=== PATIENT | female | born 1940 | race Caucasian/White ===

== ENCOUNTER → 2020-04-30 | Outpatient (CLI) | payer MEDICARE ==
[2020-04-30 12:23] LABS: ABSOLUTE EOSINOPHILS # (AUTO) 0.1 10^3/uL (0.0-0.6); ABSOLUTE LYMPHOCYTES (AUTO) 1.5 10^3/uL (0.5-4.7); ABSOLUTE MONOCYTES (AUTO) 0.6 10^3/uL (0.1-1.4); ABSOLUTE NEUT (AUTO) 3.7 10^3/uL (1.7-8.2); BASOPHILS % (AUTO) 0.6 % (0-2); EOSINOPHILS % (AUTO) 0.9 % (0-6); HEMATOCRIT 42.9 % (36.0-47.0); HEMOGLOBIN 14.2 g/dL (12.0-15.5); MEAN CORPUSCULAR HEMOGLOBIN 30.4 pg (27.0-33.4); MEAN CORPUSCULAR HGB CONC 33.1 g/dL (32.0-36.0); MEAN CORPUSCULAR VOLUME 92 fl (80-97); MONOCYTES % (AUTO) 9.8 % (3-13); PLATELET COUNT 160 10^3/uL (150-450); RED BLOOD COUNT 4.69 10^6/uL (3.72-5.28); RED CELL DISTRIBUTION WIDTH 14.1 % (11.5-14.0); SEGMENTED NEUTROPHILS % (AUTO) 62.7 % (42-78); TOTAL CELLS COUNTED % (AUTO) 100 %; WHITE BLOOD COUNT 5.9 10^3/uL (4.0-10.5)
--- NOTE | 2020-04-30 12:23 | RADIOLOGY REPORT (SQ) ---
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 NUMBER OF VIEWS: Two views. TECHNIQUE: Two radiographic images acquired of the right tibia and fibula to include the knee and an kle in at least one projection. LIMITATIONS: None. FINDINGS: MINERALIZATION: Normal. BONES: Surgical clips are closely approximated to the anterior tibia. There is no evidence of osteom yelitis. There is some subperiosteal new bone along the tibia that is smooth and benign in appearanc e. SOFT TISSUES: No obvious swelling or foreign body. OTHER: No other significant finding. IMPRESSION: No evidence of osteomyelitis. TECHNICAL DOCUMENTATION: JOB ID: [id number] 2010 [employer]- All Rights Reserved Reading location - IP/workstation name: [email or web address]
[2020-04-30 12:27] LABS: ALBUMIN 4.2 g/dL (3.5-5.0); ALKALINE PHOSPHATASE 69 U/L (38-126); ASPARTATE AMINO TRANSFERASE 25 U/L (14-36); BILIRUBIN,DIRECT 0.1 mg/dL (0.0-0.4); BILIRUBIN,TOTAL 0.6 mg/dL (0.2-1.3); BLOOD UREA NITROGEN 18 mg/dL (7-20); C-REACTIVE PROTEIN 6.2 mg/L (<10.0); CALCIUM 9.8 mg/dL (8.4-10.2); CARBON DIOXIDE 32 mmol/L (22-30); GLUCOSE 91 mg/dL (75-110); POTASSIUM 4.8 mmol/L (3.6-5.0); TOTAL PROTEIN 7.5 g/dL (6.3-8.2)
[2020-04-30 12:30] LABS: CHLORIDE 103 mmol/L (98-107)
[2020-04-30 12:32] LABS: ANION GAP 4 (5-19)
[2020-04-30 12:41] LABS: ERYTHROCYTE SEDIMENTATION RATE 33 mm/hr (0-30)
== END ==
LOC: WC 10:28
PROVIDERS: ATTEND Nurse Practitioner Family
DX: L97.214 Non-pressure chronic ulcer of right calf with necrosis of bone (principal)
CPT/HCPCS: 36415; 80053; 85025; 85652; 86140

== ENCOUNTER → 2020-05-08 | Outpatient (CLI) | payer MEDICARE ==
--- NOTE | 2020-05-08 17:27 | RADIOLOGY REPORT (SQ) ---
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 TECHNIQUE: Dynamic and static yoder scale and color images acquired of the lower extremity arteries. Additional selected spectral images recorded. LIMITATIONS: None. FINDINGS: RIGHT LEG: INFLOW ARTERIES: Normal, no obstruction evident. FEMORAL ARTERIES:Multiphasic waveforms. Normal, no velocity elevation to suggest focal stenosis. Norm al color Doppler evaluation. No aneurysm. POPLITEAL ARTERY:Multiphasic waveforms. Normal, no velocity elevation to suggest focal stenosis. Norm al color Doppler evaluation. No aneurysm. PATENT TIBIOPERONEAL TRUNK AND 3 VESSEL RUNOFF: Yes, normal vessels. OTHER: No other significant finding. LEFT LEG: INFLOW ARTERIES: Normal, no obstruction evident. FEMORAL ARTERIES:Multiphasic waveforms. Normal, no velocity elevation to suggest focal stenosis. Norm al color Doppler evaluation. No aneurysm. POPLITEAL ARTERY:Multiphasic waveforms. Normal, no velocity elevation to suggest focal stenosis. Norm al color Doppler evaluation. No aneurysm. PATENT TIBIOPERONEAL TRUNK AND 3 VESSEL RUNOFF: Yes, normal vessels. OTHER: No other significant finding. IMPRESSION: No significant or flow limiting stenosis. Normal waveforms. TECHNICAL DOCUMENTATION: JOB ID: [id number] 2010 [employer]- All Rights Reserved Reading location - IP/workstation name: [email or web address]
== END ==
LOC: SP 08:50
PROVIDERS: ATTEND Nurse Practitioner Family
DX: L97.214 Non-pressure chronic ulcer of right calf with necrosis of bone (principal)
CPT/HCPCS: 93925

== ENCOUNTER → 2020-06-11 | Outpatient (CLI) | payer MEDICARE ==
--- NOTE | 2020-06-11 12:13 | RADIOLOGY REPORT (SQ) ---
EXAM DESCRIPTION: C SP 4 OR 5 VIEWS IMAGES COMPLETED DATE/TIME: 06/11/2020 9:53 am REASON FOR STUDY: RADICULOPATHY, CERVICAL REGION M54.12 RADICULOPATHY, CERVICAL REGION COMPARISON: None. NUMBER OF VIEWS: Five views. TECHNIQUE: AP, lateral, obliques and odontoid radiographic images acquired of the cervical spine. LIMITATIONS: None. FINDINGS: MINERALIZATION: Normal. ALIGNMENT: Anatomic. VERTEBRAE: Vertebral bodies of normal height. DISCS: Disc spaces are narrowed from C5-C7. Marginal osteophytes are seen from C4-T1. FORAMINA: No significant foraminal narrowing. LATERAL AND POSTERIOR ELEMENTS: Hypertrophic facet changes seen in the mid to upper cervical spine. HARDWARE: None in the spine. SOFT TISSUES: No masses or calcifications. Lung apices clear. OTHER: No other significant finding. IMPRESSION: Degenerative disc disease, spondylosis, and facet arthropathy. TECHNICAL DOCUMENTATION: JOB ID: [id number] 2010 [employer]- All Rights Reserved Reading location - IP/workstation name: [email or web address]
== END ==
LOC: OD 09:27
PROVIDERS: ATTEND Family Medicine Geriatric Medicine
DX: M54.12 Radiculopathy, cervical region (principal)
CPT/HCPCS: 72050

== ENCOUNTER → 2020-06-11 | Outpatient (CLI) | payer MEDICARE ==
--- NOTE | 2020-06-11 14:32 | RADIOLOGY REPORT (SQ) ---
EXAM DESCRIPTION: CT HEAD WITH IMAGES COMPLETED DATE/TIME: 06/11/2020 1:54 pm REASON FOR STUDY: R51 HEADACHE Z85.528 PERSONAL HISTORY OF OTHER MALIGNANT NEOPLASM OF KIDN R51 HE ADACHE L97.919 NON-PRS CHRONIC ULC UNSP PRT OF R LOW LEG W UNSP SEV COMPARISON: None. TECHNIQUE: Axial images acquired through the brain with intravenous contrast. Images reviewed with b one, brain and subdural windows. Additional sagittal and coronal reconstructions were generated. Rosa Isela ges stored on PACS. All CT scanners at this facility use dose modulation, iterative reconstruction, and/or weight based d osing when appropriate to reduce radiation dose to as low as reasonably achievable (ALARA). [facility]: Dose Right [facility]: CareDose [facility]: Dose Right [facility]: Teradose 4D [facility]: [employer] CONTRAST TYPE AND DOSE: Not recorded here. Refer to the technologist's notes. RENAL FUNCTION: Creatinine 0.9 RADIATION DOSE: CT Rad equipment meets quality standard of care and radiation dose reduction techniq ues were employed. CTDIvol: 48.6 mGy. DLP: 880 mGy-cm.. LIMITATIONS: There is no opacification of cerebral blood vessels. FINDINGS: VENTRICLES: Normal size and contour. CEREBRUM: No masses. No hemorrhage. No midline shift. There are areas of decreased attenuation in th e white matter. No evidence for acute infarction. No enhancing lesions. CEREBELLUM: No masses. No hemorrhage. No alteration of density. No evidence for acute infarction. No enhancing lesions. EXTRA-AXIAL SPACES: No fluid collections. No enhancing lesions. ORBITS AND GLOBE: No intra- or extraconal masses. Normal contour of globe without masses. CALVARIUM: No fracture. PARANASAL SINUSES: No fluid or mucosal thickening. SOFT TISSUES: No mass or hematoma. OTHER: No other significant finding. IMPRESSION: Chronic microvascular ischemia. No acute intracranial imaging findings. Limited study. EVIDENCE OF ACUTE STROKE: NO. TECHNICAL DOCUMENTATION: JOB ID: [id number] Quality ID # [id number]: Final reports with documentation of one or more dose reduction techniques (e.g., Au tomated exposure control, adjustment of the mA and/or kV according to patient size, use of iterative reconstruction technique) 2010 [employer]- All Rights Reserved Reading location - IP/workstation name: [email or web address]
--- NOTE | 2020-06-11 14:40 | RADIOLOGY REPORT (SQ) ---
EXAM DESCRIPTION: CT CHEST WITH IMAGES COMPLETED DATE/TIME: 06/11/2020 1:54 pm REASON FOR STUDY: Z85.528 PERSONAL HISTORY OF OTHER MALIGNANT NEOPLASM OF KIDNEY Z85.528 PERSONAL H ISTORY OF OTHER MALIGNANT NEOPLASM OF KIDN R51 HEADACHE L97.919 NON-PRS CHRONIC ULC UNSP PRT OF R L OW LEG W UNSP SEV COMPARISON: None. TECHNIQUE: CT scan of the chest performed using helical scanning technique with dynamic intravenous contrast injection. Images reviewed with lung, soft tissue and bone windows. Reconstructed coronal and sagittal MPR and MIP images reviewed. All images stored on PACS. All CT scanners at this facility use dose modulation, iterative reconstruction, and/or weight based d osing when appropriate to reduce radiation dose to as low as reasonably achievable (ALARA). [facility]: Dose Right [facility]: CareDose [facility]: Dose Right [facility]: Teradose 4D [facility]: [employer] CONTRAST TYPE AND DOSE: contrast/concentration: Isovue 350.00 mmol/ml; Total Contrast Delivered: 80. 0 ml; Total Saline Delivered: 39.9 ml RENAL FUNCTION: Creatinine 0.9 RADIATION DOSE: CT Rad equipment meets quality standard of care and radiation dose reduction techniq ues were employed. CTDIvol: 9.7 mGy. DLP: 420 mGy-cm. . LIMITATIONS: None. FINDINGS: LUNGS AND PLEURA: No opacities, nodules, masses. No pneumothorax. No effusions. HILAR AND MEDIASTINAL STRUCTURES: No identified masses or abnormal nodes. HEART AND VASCULAR STRUCTURES: No aneurysm or dissection. No central pulmonary emboli. 9 mm pericar dial effusion. HARDWARE: None in the chest. UPPER ABDOMEN: Large gallstone. THYROID AND OTHER SOFT TISSUES: No masses. No adenopathy. BONES: No significant finding. OTHER: 4 cm mass or group of matted lymph nodes in the right lateral chest wall. See image 45 series 2. There appear to be a couple of contiguous lymph nodes in the subcutaneous fat in the anterior ab domen. See images 69 through 72. IMPRESSION: 1. No acute pulmonary findings. 2. Small pericardial effusion. 3. 4 cm mass or group of lymph nodes in the right lateral chest wall. 22 mm total diameter of 2 con tiguous lymph nodes in the subcutaneous fat in the anterior abdomen. 4. Cholelithiasis. TECHNICAL DOCUMENTATION: JOB ID: [id number] Quality ID # 436: Final reports with documentation of one or more dose reduction techniques (e.g., Au tomated exposure control, adjustment of the mA and/or kV according to patient size, use of iterative reconstruction technique) 2010 [employer]- All Rights Reserved Reading location - IP/workstation name: [email or web address]
--- NOTE | 2020-06-11 15:23 | RADIOLOGY REPORT (SQ) ---
EXAM DESCRIPTION: U/S EXTREMITY NONVASCULAR COMP IMAGES COMPLETED DATE/TIME: 06/11/2020 2:53 pm REASON FOR STUDY: . NON-PRS CHRONIC ULC UNSP PRT OF R LOW LEG W UNSP SEVERITY Z85.528 PERSONA L HISTORY OF OTHER MALIGNANT NEOPLASM OF KIDN R51 HEADACHE L97 NON-PRS CHRONIC ULC UNSP PRT OF R LOW LEG W UNSP SEV COMPARISON: None. TECHNIQUE: Dynamic and static grayscale images acquired of the localized site of clinical concern an d recorded on PACS. Additional selected color Doppler and spectral images recorded. SITE OF CONCERN: Bilateral supraclavicular areas, lower neck. Right arm LIMITATIONS: None. FINDINGS: No significant findings were seen in the right arm. In the right lower neck/ supraclavicular area there is an irregular heterogeneous hypoechoic area rosie suring 17 x 21 x 10 mm. In the left neck/ supraclavicular area there is irregular heterogeneous hypoechoic mass measuring 34 x 28 x 33 mm. There is an irregular hypoechoic heterogeneous mass measuring 12 x 13 x 10 mm. There is a hypoechoic area measuring 26 x 22 x 19 mm. IMPRESSION: There are irregular hypoechoic areas in the neck/supraclavicular region bilaterally as d escribed. Cannot exclude necrotic lymph nodes. Consider CT of the neck with contrast. Consider ult rasound-guided biopsy. TECHNICAL DOCUMENTATION: JOB ID: [id number] 2010 [employer]- All Rights Reserved Reading location - IP/workstation name: [email or web address]
== END ==
LOC: RAD 13:07
PROVIDERS: ATTEND Family Medicine Geriatric Medicine
DX: R51 Headache (principal); L97.919 Non-pressure chronic ulcer of unspecified part of right lower leg with unspecified severity; Z85.528 Personal history of other malignant neoplasm of kidney
CPT/HCPCS: 70460; 71260; 76881; 82565

== ENCOUNTER → 2020-06-24 | Outpatient (CLI) | payer MEDICARE ==
--- NOTE | 2020-06-25 09:06 | RADIOLOGY REPORT (SQ) ---
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 TECHNIQUE: Blood glucose level was verified. Above dose of FDG was injected intravenously. 2-D seg mented attenuation correction images were obtained through the entire body. Noncontrast CT images we re obtained for attenuation correction and fusion with emission images. CT images were performed wit hout oral or intravenous contrast and are not sensitive for parenchymal lesions. A series of overlap ping emission PET images were obtained. Images reviewed and manipulated at independent work station by the radiologist. Images stored on PACS. LIMITATIONS: None. FINDINGS: HEAD AND NECK: Abnormal uptake in the large soft tissue mass in the left posterior neck th is measures 3.7 cm in diameter. SUV is greater than 31 consistent with neoplasm. Extensive bilatera l cervical adenopathy again with intense metabolic activity SUVs are greater than 28 consistent with neoplasm. CHEST: Subcutaneous nodules in the back, right axilla and right upper extremity consistent with metas tatic disease. There is a focal soft tissue nodule in the right breast with an SUV of 30. This aris ures 1.[address] images. There is a large right posterolateral chest wall mass with an SUV of 25.2 . ABDOMEN AND PELVIS: Subcutaneous lesions in the anterior abdominal wall. There is a peritoneal impla nt on series 3, image 187. SUV is 23.8. There is a 3.6 cm right retroperitoneal mass with an SUV of 32.8. There is a large soft tissue mass over lying the right iliac wing with an SUV of greater than 25. Additional peritoneal implants in the right anterior aspect of the pelvis with SUVs greater bob n 19. Additional muscular implants are seen in the left posterior upper extremity minimal uptake in a subcutaneous nodule in the subcutaneous soft tissues of the mons pubis. LOWER EXTREMITIES: Numerous subcutaneous nodules in the right lower leg with intense metabolic activi ty. BONES: No abnormal metabolic activity in the visualized skeleton. ADDITIONAL CT FINDINGS: Incidental note is made of gallstones. OTHER: No other significant findings. 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 There are subcutaneous nodules as well as numerous peritoneal implants. TECHNICAL DOCUMENTATION: JOB ID: [id number] 2010 [employer]- All Rights Reserved Reading location - IP/workstation name: [email or web address]
== END ==
LOC: RAD 12:38
PROVIDERS: ATTEND Internal Medicine
DX: C43.71 Malignant melanoma of right lower limb, including hip (principal)
CPT/HCPCS: 78816; A9552

== ENCOUNTER 2020-06-26 09:03 | Day surgery (SDC) | payer MEDICARE ==
[2020-06-26 10:24] LABS: HEMATOCRIT 28.2 % (36.0-47.0); HEMOGLOBIN 9.8 g/dL (12.0-15.5); MEAN CORPUSCULAR HEMOGLOBIN 32.8 pg (27.0-33.4); MEAN CORPUSCULAR HGB CONC 34.7 g/dL (32.0-36.0); MEAN CORPUSCULAR VOLUME 95 fl (80-97); PLATELET COUNT 203 10^3/uL (150-450); RED BLOOD COUNT 2.99 10^6/uL (3.72-5.28); RED CELL DISTRIBUTION WIDTH 16.4 % (11.5-14.0); WHITE BLOOD COUNT 5.6 10^3/uL (4.0-10.5)
[2020-06-26 10:31] LABS: INTERNATIONAL RATION (INR) 1.07; PROTHROMBIN TIME 14.1 SEC (11.4-15.4)
[2020-06-26 10:32] LABS: PARTIAL THROMBOPLASTIN TIME 32.7 SEC (23.5-35.8)
[2020-06-26 10:49] LABS: BLOOD UREA NITROGEN 21 mg/dL (7-20)
[2020-06-26] MEDS ORDERED: FENTANYL CITRATE INJ/PF 100 MCG/2 ML AMPUL ONE (11:03)
[2020-06-26] MEDS ORDERED: MIDAZOLAM 2 MG/2 ML INJ ONE (11:03)
--- NOTE | 2020-06-26 13:34 | RADIOLOGY REPORT (SQ) ---
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 TECHNIQUE: CT guided biopsy of the posterior right flank mass performed with conscious sedation. CT Fluoroscopy Time: [address] scanners at this facility use dose modulation, iterative reconstruction, and/or weight based d osing when appropriate to reduce radiation dose to as low as reasonably achievable (ALARA). [facility]: Dose Right [facility]: CareDose [facility]: Dose Right [facility]: Teradose 4D [facility]: [employer] RADIATION DOSE: CT Rad equipment meets quality standard of care and radiation dose reduction techni ques were employed. CTDIvol: 4.0 - 20.3 mGy. DLP: 492 mGy-cm.mGy. FINDINGS: After obtaining informed consent and explaining the risks and benefits of conscious sedati on,the patient agreed to the procedure. Prior to the procedure, a time out was performed to verify th e patient's identity and planned procedure. IV sedation was administered and physician direction by the registered nurse using 1 milligrams of Ve rsed and 100 micrograms of fentanyl, for conscious sedation. Physiologic monitoring was provided befo re, during, and after sedation. The total sedation time was 30 minutes. Documentation face to face time, the performing proceduralist, spent monitoring the patient: [address] scanning was performed to localize the percutaneous site for the biopsy approach. After sterile skin prep and local lidocaine for skin and deep tissue anesthesia, a coaxial biopsy nee dle was used to obtain multiple cores of tissue. The biopsy tissue was submitted to the lab in forma sirena. There were no immediate complications. Pathology is pending at the time of dictation. IMPRESSION: CT GUIDED BIOPSY OF THE POSTERIOR RIGHT FLANK MASS PERFORMED WITHOUT IMMEDIATE COMPLICAT ION. PATHOLOGY PENDING. COMMENT: Quality ID 145: Final reports for procedures using fluoroscopy that document radiation exp osure indices, or exposure time and number of fluorographic images (if radiation exposure indices are not available) Patient medication list reviewed: Yes- Quality ID# [id number]:Eligible professional attests to documenting i n the medical record they obtained, updated, or reviewed the patient's current medications.. TECHNICAL DOCUMENTATION: JOB ID: [id number] Quality ID# 436: Final reports with documentation of one or more dose reduction techniques (e.g., Aut omated exposure control, adjustment of the mA and/or kV according to patient size, use of iterative r econstruction technique) 2010 [employer]- All Rights Reserved Reading location - IP/workstation name: [email or web address]
--- NOTE | 2020-06-26 13:34 | RADIOLOGY REPORT (SQ) ---
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 TECHNIQUE: CT guided biopsy of the posterior right flank mass performed with conscious sedation. CT Fluoroscopy Time: [address] scanners at this facility use dose modulation, iterative reconstruction, and/or weight based d osing when appropriate to reduce radiation dose to as low as reasonably achievable (ALARA). [facility]: Dose Right [facility]: CareDose [facility]: Dose Right [facility]: Teradose 4D [facility]: [employer] RADIATION DOSE: CT Rad equipment meets quality standard of care and radiation dose reduction techni ques were employed. CTDIvol: 4.0 - 20.3 mGy. DLP: 492 mGy-cm.mGy. FINDINGS: After obtaining informed consent and explaining the risks and benefits of conscious sedati on,the patient agreed to the procedure. Prior to the procedure, a time out was performed to verify th e patient's identity and planned procedure. IV sedation was administered and physician direction by the registered nurse using 1 milligrams of Ve rsed and 100 micrograms of fentanyl, for conscious sedation. Physiologic monitoring was provided befo re, during, and after sedation. The total sedation time was 30 minutes. Documentation face to face time, the performing proceduralist, spent monitoring the patient: [address] scanning was performed to localize the percutaneous site for the biopsy approach. After sterile skin prep and local lidocaine for skin and deep tissue anesthesia, a coaxial biopsy nee dle was used to obtain multiple cores of tissue. The biopsy tissue was submitted to the lab in forma sirena. There were no immediate complications. Pathology is pending at the time of dictation. IMPRESSION: CT GUIDED BIOPSY OF THE POSTERIOR RIGHT FLANK MASS PERFORMED WITHOUT IMMEDIATE COMPLICAT ION. PATHOLOGY PENDING. COMMENT: Quality ID 145: Final reports for procedures using fluoroscopy that document radiation exp osure indices, or exposure time and number of fluorographic images (if radiation exposure indices are not available) Patient medication list reviewed: Yes- Quality ID# [id number]:Eligible professional attests to documenting i n the medical record they obtained, updated, or reviewed the patient's current medications.. TECHNICAL DOCUMENTATION: JOB ID: [id number] Quality ID# 436: Final reports with documentation of one or more dose reduction techniques (e.g., Aut omated exposure control, adjustment of the mA and/or kV according to patient size, use of iterative r econstruction technique) 2010 [employer]- All Rights Reserved Reading location - IP/workstation name: [email or web address]
[2020-06-26 13:48] VITALS: BP 134/61
== END 2020-06-26 13:37 | disposition home or self-care (01) ==
LOC: RAD 09:03
PROVIDERS: ATTEND Internal Medicine
DX: C43.71 Malignant melanoma of right lower limb, including hip (principal); C79.89 Secondary malignant neoplasm of other specified sites; Z79.01 Long term (current) use of anticoagulants
CPT/HCPCS: 36415; 84520; 82565; 85027; 85610; 85730; 88342 ×2; 88341 ×2; 88305 ×2; 77012; 38505; J2250; J3010

== ENCOUNTER → 2020-07-28 | Outpatient (CLI) | payer MEDICARE ==
[~2020-07-28] MED LIST: BUPIVACAINE HCL 0.25 % INJ/PF (2.5 MG/1 ML) 30 ML VIAL ONE; CEFAZOLIN 2 GM/D5W RTU 2 GM/50 ML RTUPB IV PRN; FENTANYL CITRATE INJ/PF 100 MCG/2 ML AMPUL ONE; LACTATED RINGERS 1000 ML IV PRN; LIDOCAINE 0.5% INJ-PF (5 MG/ML) 50 ML SDV SUBCUT PRN; LIDOCAINE 1% INJ-PF (10 MG/ML) 30 ML SDV ONE; LIDOCAINE 2% INJ (20 MG/ML) 20 ML MDV ONE; MIDAZOLAM 2 MG/2 ML INJ ONE; PROPOFOL INJ 200 MG/20 ML VIAL IV ONE
[2020-07-28 12:41] LABS: HEMATOCRIT 28.7 % (36.0-47.0); HEMOGLOBIN 9.7 g/dL (12.0-15.5); MEAN CORPUSCULAR HGB CONC 33.7 g/dL (32.0-36.0); MEAN CORPUSCULAR VOLUME 89 fl (80-97); PLATELET COUNT 258 10^3/uL (150-450); RED BLOOD COUNT 3.22 10^6/uL (3.72-5.28); RED CELL DISTRIBUTION WIDTH 16.4 % (11.5-14.0)
--- NOTE | 2020-07-28 13:04 | EKG REPORT ---
SEVERITY:- ABNORMAL ECG - ATRIAL FIBRILLATION : Confirmed by: Orestes Riley MD 28-Jul-2020 13:03:24
[2020-07-29 09:09] VITALS: BP 123/61
== END ==
LOC: OD 10:35 → EDSTATUS 07-30 09:00
PROVIDERS: ATTEND Surgery
DX: Z01.810 Encounter for preprocedural cardiovascular examination (principal); Z01.812 Encounter for preprocedural laboratory examination; Z20.828 Contact with and (suspected) exposure to other viral communicable diseases
CPT/HCPCS: 93005; 93010; U0003; C9803; 87635; J1642; J2250; J2704; J3010; J3490

== ENCOUNTER 2020-07-29 11:31 | Observation (INO) | payer MEDICARE ==
--- NOTE | 2020-07-29 14:31 | ER Document Report ---
ED General - General Chief Complaint: General Weakness Stated Complaint: ALTERED MENTAL STATUS Primary Care Provider: GEOVANI DAY MD [Primary Care Provider] - Follow up as needed Notes: Patient is an 80-year-old white female with a history of malignant melanoma with metastasis and atrial fibrillation who presents to the emergency department today with a chief complaint of generalized weakness. The daughter reports that the patient was diagnosed first 8 years ago with melanoma the right lower leg underwent radiation has had a chronic wound since. States that the melanoma return was found in May and has since been noted to spread throughout the body from "head to toes". Daughter reports a PET scan recently. She states that the patient's had some changes in her pain medicines recently. She was previously on Vicodin which did not work and then they reports she changed oxycodone which was helping but states that the patient is very forgetful to take the tablets and was accidentally taking Eliquis which she was supposed to have stopped instead of the oxycodone. The patient's daughter reports that she has not taken the Eliquis in quite some time. She reports that they recently changed her pain medication to fentanyl so she did not have to remember to take a pill every day. Daughter reports that she is on her second fentanyl patch so she has been on it approximately 6 days max. She states over the past 72 hours the patient's been very weak and fatigued. She states the patient's not had an appetite not wanting to get out of bed and has actually soiled herself because she did not have the strength to get from her bed to the bathroom but not that she was incontinent. States the patient's been complaining of a headache and has had increased flatulence. She states the patient was due to have a port placement tomorrow here, they called Dr. Tho doll today who recommended the patient come to the emergency department for admission. - Related Data Allergies/Adverse Reactions: No Known Allergies Allergy (Verified 07/29/20 12:22) Home Medications: losartan. eliquis (stopped R/T GI bleed) Past Medical History - General Information source: Patient, Relative - Social History Smoking Status: Former Smoker Family History: Reviewed & Not Pertinent Patient has homicidal ideation: No - Past Medical History Cardiac Medical History: Reports: Hx Hypertension Denies: Hx Coronary Artery Disease, Hx Heart Attack Pulmonary Medical History: Denies: Hx Asthma, Hx Bronchitis, Hx COPD, Hx Pneumonia Neurological Medical History: Denies: Hx Cerebrovascular Accident, Hx Seizures Musculoskeletal Medical History: Reports Hx Arthritis - Immunizations Hx Diphtheria, Pertussis, Tetanus Vaccination: No Review of Systems - Review of Systems Constitutional: denies: Fever EENT: denies: Nose pain Cardiovascular: denies: Dyspnea Respiratory: denies: Stridor Gastrointestinal: denies: Vomiting Genitourinary: denies: Hematuria Female Genitourinary: denies: Vaginal discharge Musculoskeletal: denies: Muscle stiffness Skin: denies: Change in hair/nails Hematologic/Lymphatic: denies: Easy bleeding Neurological/Psychological: denies: Gait changes Physical Exam - Vital signs Vitals: Pulse Resp BP Pulse Ox 70 18 128/76 H 97 07/29/20 11:31 07/29/20 11:31 07/29/20 11:31 07/29/20 11:31 - General General appearance: Appears well, Alert In distress: None - HEENT Head: Normocephalic, Atraumatic Eyes: Normal Conjunctiva: Normal Pupils: PERRL Mucous membranes: Moist Pharynx: Normal Neck: Normal, Supple - Respiratory Respiratory status: No respiratory distress Chest status: Nontender Breath sounds: Normal Chest palpation: Normal - Cardiovascular Rhythm: Regular Heart sounds: Normal auscultation Murmur: No - Abdominal Inspection: Normal Distension: No distension Bowel sounds: Normal Tenderness: Nontender Organomegaly: No organomegaly - Extremities Notes: Wound casting covering the right lower extremity, foul smell noted - Neurological Neuro grossly intact: Yes Cognition: Normal Orientation: AAOx4 - Psychological Associated symptoms: Normal affect, Normal mood - Skin Skin Temperature: Warm Skin Moisture: Dry Course - Re-evaluation Re-evalutation: 07/29/20 16:[address] Tho doll and discussed laboratory findings and patient's condition. We did discuss the possibility of the fentanyl being a new medication possibly causing this newfound generalized fatigue and weakness. Also discussed possibility of early dementia. He requested MRI with contrast which we will obtain. We will continue to monitor patient. 07/29/20 17:12 EK. Atrial fibrillation at 70 bpm. No STEMI. Interpreted by myself in conjunction with ED attending. 07/29/20 19:52 MRI showing metastasis to the left frontal lobe with some edema and a slight mi dline shift. I called and spoke with Dr. Tho doll who recommends plan for admission. Request 10 mg IV Dex loading dose with Dex to be scheduled 4 mg every 6 hours and Keppra 500 mg p.o. twice daily. Of note the patient has previously signed a DNR. I called and spoke with Dr. Henry, hospitalist. We discussed the patient's case and he will admit overnight for observation. Patient is stable at this time. - Vital Signs Vital signs: Temp Pulse Resp BP Pulse Ox 98.2 F 72 17 127/78 H 98 07/29/20 12:01 07/29/20 14:31 07/29/20 14:31 07/29/20 14:31 07/29/20 14:31 - Laboratory Result Diagrams: 07/29/20 15:25 07/29/20 15:25 Laboratory results interpreted by me: 07/29/20 07/29/20 15:25 15:25 RBC 3.14 L Hgb 9.5 L Hct 28.1 L RDW 16.6 H Sodium 132.4 L Chloride 97 L Creatine Kinase < 20 L Total Protein 5.8 L Albumin 3.1 L Discharge - Discharge Clinical Impression: Brain metastasis, Weakness, Alteration in activity Melanoma Qualifiers: Melanoma location: unspecified site Qualified Code(s): C43.9 - Malignant melanoma of skin, unspecified Altered mental status Qualifiers: Altered mental status type: unspecified Qualified Code(s): R41.82 - Altered mental status, unspecified Condition: Stable Disposition: ADMITTED OBSERVATION Admitting Provider: Carl (Hospitalist) Unit Admitted: Medical Floor Referrals: GEOVANI DAY MD [Primary Care Provider] - Follow up as needed
[2020-07-29 15:35] LABS: ABSOLUTE BASOPHILS # (AUTO) 0.1 10^3/uL (0.0-0.2); ABSOLUTE EOSINOPHILS # (AUTO) 0.1 10^3/uL (0.0-0.6); ABSOLUTE LYMPHOCYTES (AUTO) 1.6 10^3/uL (0.5-4.7); ABSOLUTE MONOCYTES (AUTO) 0.9 10^3/uL (0.1-1.4); ABSOLUTE NEUT (AUTO) 4.7 10^3/uL (1.7-8.2); EOSINOPHILS % (AUTO) 1.5 % (0-6); HEMATOCRIT 28.1 % (36.0-47.0); HEMOGLOBIN 9.5 g/dL (12.0-15.5); LYMPHOCYTES % (AUTO) 21.8 % (13-45); MEAN CORPUSCULAR HEMOGLOBIN 30.3 pg (27.0-33.4); MEAN CORPUSCULAR HGB CONC 33.9 g/dL (32.0-36.0); MEAN CORPUSCULAR VOLUME 89 fl (80-97); MONOCYTES % (AUTO) 12.2 % (3-13); PLATELET COUNT 230 10^3/uL (150-450); RED BLOOD COUNT 3.14 10^6/uL (3.72-5.28); RED CELL DISTRIBUTION WIDTH 16.6 % (11.5-14.0); SEGMENTED NEUTROPHILS % (AUTO) 63.5 % (42-78); TOTAL CELLS COUNTED % (AUTO) 100 %; WHITE BLOOD COUNT 7.4 10^3/uL (4.0-10.5)
[2020-07-29 15:49] LABS: INTERNATIONAL RATION (INR) 1.13; PROTHROMBIN TIME 14.7 SEC (11.4-15.4)
[2020-07-29 15:50] LABS: PARTIAL THROMBOPLASTIN TIME 30.6 SEC (23.5-35.8)
--- NOTE | 2020-07-29 15:53 | RADIOLOGY REPORT (SQ) ---
EXAM DESCRIPTION: CHEST SINGLE VIEW IMAGES COMPLETED DATE/TIME: 07/29/2020 2:30 pm REASON FOR STUDY: weakness COMPARISON: None. EXAM PARAMETERS: NUMBER OF VIEWS: One view. TECHNIQUE: Single frontal radiographic view of the chest acquired. RADIATION DOSE: NA LIMITATIONS: None. FINDINGS: LUNGS AND PLEURA: Lungs are hyperinflated. No opacities, masses or pneumothorax. No pleur al effusion. MEDIASTINUM AND HILAR STRUCTURES: No masses. Contour normal. HEART AND VASCULAR STRUCTURES: Heart normal in size. Normal vasculature. BONES: No acute findings. HARDWARE: None in the chest. OTHER: No other significant finding. IMPRESSION: NO ACUTE RADIOGRAPHIC FINDING IN THE CHEST. TECHNICAL DOCUMENTATION: JOB ID: [id number] [employer]- All Rights Reserved Reading location - IP/workstation name: [id number]
[2020-07-29 15:55] LABS: ALBUMIN 3.1 g/dL (3.5-5.0); ALKALINE PHOSPHATASE 55 U/L (38-126); ANION GAP 7 (5-19); ASPARTATE AMINO TRANSFERASE 32 U/L (14-36); BILIRUBIN,DIRECT 0.2 mg/dL (0.0-0.4); BILIRUBIN,TOTAL 0.5 mg/dL (0.2-1.3); BLOOD UREA NITROGEN 19 mg/dL (7-20); CALCIUM 9.1 mg/dL (8.4-10.2); CARBON DIOXIDE 28 mmol/L (22-30); CHLORIDE 97 mmol/L (98-107); GLUCOSE 99 mg/dL (75-110); POTASSIUM 4.2 mmol/L (3.6-5.0); TOTAL PROTEIN 5.8 g/dL (6.3-8.2)
[2020-07-29 15:56] LABS: CREATINE KINASE < 20 U/L (30-135)
--- NOTE | 2020-07-29 18:14 | EKG REPORT ---
SEVERITY:- ABNORMAL ECG - ATRIAL FIBRILLATION : Confirmed by: Orestes Riley MD 29-Jul-2020 18:14:03
--- NOTE | 2020-07-29 19:35 | RADIOLOGY REPORT (SQ) ---
EXAM DESCRIPTION: MRI HEAD COMBO IMAGES COMPLETED DATE/TIME: 07/29/2020 5:20 pm REASON FOR STUDY: weakness ?mets malignant melanoma. Headache, confusion, pain and weakness for 3 d ays. Radiation therapy. COMPARISON: CT head, 06/11/2020. PET CT, 06/24/2020. TECHNIQUE: Postcontrast T1 images were obtained in axial, coronal, and sagittal planes. CONTRAST TYPE AND DOSE: 15 mL ProHance RENAL FUNCTION: Not indicated. ACR Type II contrast agent associated with few, if any, unconfounded cases of NSF LIMITATIONS: None. FINDINGS: There is a 2.5 x 2.4 cm metastasis in the left frontal lobe with moderate surrounding vaso genic edema. Mild mass effect with flattening of the sulci in the left frontal lobe and 5 mm left-to -right midline shift at the falx. No downward herniation. Edema extends to the left frontal horn of the lateral ventricle. There is no other enhancing intracranial lesion. No abnormal dural or lepto meningeal enhancement. No extra-axial fluid collection or hemorrhage. Paranasal sinuses and mastoid air cells are clear. In the left posterior neck, there is a necrotic mass measuring 4.2 x 4.1 cm. This appears to be entirely soft tissue mass without involvement of the skullbase. This was previous ly described on PET CT. IMPRESSION: 1. Left frontal lobe intracranial metastasis. Surrounding vasogenic edema and mild mass effect with mild left to right midline shift. No evidence of transtentorial herniation. 2. Soft tissue metastasis in the left posterior neck is again demonstrated. EVIDENCE OF ACUTE STROKE: NO. COMMENT: Findings were discussed with Dr. Zayas on 07/29/2020 at 1923 hours Eastern time. TECHNICAL DOCUMENTATION: JOB ID: [id number] [employer]- All Rights Reserved Reading location - IP/workstation name: [id number]
[2020-07-29] MEDS ORDERED: LEVETIRACETAM INJ/PF 500 MG/5 ML SDV IV ONE (19:54)
[2020-07-29] MEDS ORDERED: DEXAMETHASONE SOD PHOS INJ 10 MG/1 ML VIAL IV ONE (19:54)
[2020-07-29] MEDS ORDERED: MAG HYDROX/AL HYDROX/SIMETH SUSP 30 ML UDCUP PO PRN (20:54)
[2020-07-29] MEDS ORDERED: MAGNESIUM HYDROXIDE SUSP 30 ML UDCUP PO PRN (20:54)
[2020-07-29] MEDS ORDERED: ONDANSETRON HCL INJ/PF 4 MG/2 ML SDV IV PRN (20:54)
[2020-07-29] MEDS ORDERED: LORAZEPAM INJ 2 MG/1 ML VIAL IV PRN (20:57)
[2020-07-29] MEDS ORDERED: MORPHINE SULFATE 10 MG/ML INJ IV PRN (20:57)
[2020-07-29] MEDS: FAMOTIDINE 20 MG TABLET PO SCH (23:39)
[2020-07-29] MEDS: HEPARIN SOD (PORCINE) 5,000 UNIT/ML 1 ML VIAL SUBCUT SCH (23:39)
[2020-07-29] MEDS: DEXAMETHASONE SOD PHOSPHATE INJ 4 MG/1 ML VIAL IV SCH (23:40)
[2020-07-29] MEDS ORDERED: LEVETIRACETAM 500 MG/NACL-ISO 500 MG/100 ML RTUPB IV ONE (23:46)
[2020-07-30] MEDS: LEVETIRACETAM 500 MG/NACL-ISO 500 MG/100 ML RTUPB IV SCH ×3 (00:23→22:20)
[2020-07-30] MEDS: HEPARIN SOD (PORCINE) 5,000 UNIT/ML 1 ML VIAL SUBCUT SCH ×3 (05:13→22:19)
[2020-07-30] MEDS: DEXAMETHASONE SOD PHOSPHATE INJ 4 MG/1 ML VIAL IV SCH ×3 (05:13→18:04)
--- NOTE | 2020-07-30 06:41 | PDOC H&P ---
History of Present Illness Admission Date/PCP: 07/29/2020 20:32 GEOVANI DAY MD Patient complains of: Generalized weakness History of Present Illness: CRISTINA SANTAMARIA is a 80 year old female who presented to the emergency room with a 3-day history of generalized weakness. Patient is unable to provide history due to her declining mental status and underlying chronic dementia. Information presented here is obtained from the best available reliable source. According to the patient's daughter/ticketing clerk she has been increasingly fatigued and increasingly weak over the last 3 days with associated anorexia and accompanying headache and increased flatulence. Her only change in medications has been the recent addition of a second fentanyl patch over the course of the last 6 days. The patient has a history of malignant melanoma with widespread metastases. The family was directed to bring the patient to the emergency room by Dr. Lai for admission to observation status and initiation of palliative cares. In the emergency room the patient was found to have an MRI demonstrating metastatic lesions in the left frontal lobe and a concomitant mild midline shift to the right. Dexamethasone treatment was initiated in the ER at Dr. Lai's direction with 10 mg IV x1 to be followed by 4 mg IV every 6 hours. Prophylactic anticonvulsant therapy was also initiated at Dr. Lai's direction with Keppra 500 mg IV every 12 hours. Patient was subsequently admitted observation status on the hospitalist service for further evaluation and treatment. Past Medical History Past Medical History: Due to the patient's declining mental status and underlying dementia, information presented here is obtained from the best available reliable source. Cardiac Medical History: Reports: Atrial Fibrillation, Hypertension Denies: Coronary Artery Disease, Myocardial Infarction Pulmonary Medical History: Denies: Asthma, Bronchitis, Chronic Obstructive Pulmonary Disease (COPD), Pneumonia EENT Medical History: Denies: Cataracts, Ears - Hearing aids Neurological Medical History: Denies: Hemorrhagic CVA, Ischemic CVA, Seizures Endocrine Medical History: Denies: Diabetes Mellitus Type 1, Diabetes Mellitus Type 2, Hyperthyroidism, Hypothyroidism Renal/ Medical History: Denies: Chronic Kidney Disease, Nephrolithiasis Malignancy Medical History: Reports: Skin Cancer - Malignant melanoma primary site right lower extremity pretibial region GI Medical History: Denies: Cirrhosis, Hepatitis Musculoskeltal Medical History: Reports: Arthritis Denies: Gout Skin Medical History: Reports: Other - Multiple wound infections/poor postoperative healing right lower extremity Denies: Eczema, Psoriasis Psychiatric Medical History: Denies: Alcohol Dependency, Substance Abuse, Tobacco Dependency Traumatic Medical History: Reports: None Hematology: Reports: Anemia - Chronic Denies: Bleeding Tendencies Infectious Medical History: Reports: None Past Surgical History Past Surgical History: Reports: Other - Multiple surgeries of RLE, partial nephrectomy Social History Information Source: Relative, [facility] Records Lives with: Family Smoking Status: Former Smoker Electronic Cigarette use?: No Frequency of Alcohol Use: None Hx Recreational Drug Use: No Drugs: None Hx Prescription Drug Abuse: No - Advance Directive Resuscitation Status: Full Code Surrogate healthcare decision maker:: Eloisa Bowden Family History Parental Family History Reviewed: Yes - Both parents are but no medical history is available Children Family History Reviewed: No Sibling(s) Family History Reviewed.: No Medication/Allergy Home Medications: Losartan Potassium 100 mg PO DAILY 06/26/20 Calcium Carb, Citrate/Vit D3 [Calcium + D3 ER Tablet] 1 each PO DAILY 07/28/20 Fentanyl 1 each TD 07/28/20 Vitamin B Complex 1 each PO DAILY 07/28/20 Allergies/Adverse Reactions: No Known Allergies Allergy (Verified 07/29/20 12:22) Review of Systems ROS unobtainable: Due to mental status - Acute decline in mental status in addition to chronic underlying dementia Physical Exam Vital Signs: Temp Pulse Resp BP Pulse Ox 98.2 F 72 17 127/78 H 98 07/29/20 12:01 07/29/20 14:31 07/29/20 14:31 07/29/20 14:31 07/29/20 14:31 Intake & Output 07/27/20 07/28/20 07/29/20 23:59 23:59 23:59 Weight 82.554 kg General appearance: PRESENT: no acute distress, other - Somnolent and confused when aroused Head exam: PRESENT: atraumatic, normocephalic Eye exam: PRESENT: conjunctiva pink. ABSENT: conjunctival injection, scleral icterus Ear exam: PRESENT: normal external ear exam. ABSENT: bleeding, drainage Mouth exam: PRESENT: dry mucosa, neck supple Neck exam: ABSENT: thyromegaly, tracheal deviation Respiratory exam: PRESENT: clear to auscultation lyudmila, symmetrical, unlabored Cardiovascular exam: PRESENT: irregular rhythm - Irregularly irregular rate and rhythm. ABSENT: clicks, gallop, rubs Pulses: PRESENT: normal radial pulses, normal dorsalis pedis pul Vascular exam: PRESENT: normal capillary refill. ABSENT: pallor GI/Abdominal exam: PRESENT: normal bowel sounds, soft Rectal exam: PRESENT: deferred Extremities exam: ABSENT: joint swelling, pedal edema Musculoskeletal exam: ABSENT: deformity, dislocation Neurological exam: PRESENT: altered - Somnolent, other - Confused when aroused. ABSENT: oriented to person, oriented to place, oriented to time, oriented to situation Psychiatric exam: PRESENT: other - Somnolent, confused when aroused Skin exam: PRESENT: dry, intact, warm. ABSENT: jaundice, rash, urticaria Results Laboratory Results: 07/29/20 15:25 07/29/20 15:25 07/29/20 07/29/20 15:25 15:25 WBC 7.4 RBC 3.14 L Hgb 9.5 L Hct 28.1 L MCV 89 MCH 30.3 MCHC 33.9 RDW 16.6 H Plt Count 230 Seg Neutrophils % 63.5 Sodium 132.4 L Potassium 4.2 Chloride 97 L Carbon Dioxide 28 Anion Gap 7 BUN 19 Creatinine 0.62 Est GFR ( Amer) > 60 Glucose 99 Calcium 9.1 Total Bilirubin 0.5 AST 32 Alkaline Phosphatase 55 Total Protein 5.8 L Albumin 3.1 L 07/29/20 07/29/20 15:25 15:25 Creatine Kinase < 20 L Troponin I < 0.012 Impressions: Chest X-Ray 07/29/20 14:27 IMPRESSION: NO ACUTE RADIOGRAPHIC FINDING IN THE CHEST. Head MRI 07/29/20 16:11 IMPRESSION: 1. Left frontal lobe intracranial metastasis. Surrounding vasogenic edema and mild mass effect with mild left to right midline shift. No evidence of transtentorial herniation. 2. Soft tissue metastasis in the left posterior neck is again demonstrated. EVIDENCE OF ACUTE STROKE: NO. Assessment and Plan - Diagnosis (1) Malignant melanoma metastatic to brain Is this a current diagnosis for this admission?: Yes (2) Weakness Is this a current diagnosis for this admission?: Yes (3) Fatigue Qualifiers: Fatigue type: unspecified Qualified Code(s): R53.83 - Other fatigue Is this a current diagnosis for this admission?: Yes (4) Headache Qualifiers: Headache type: unspecified Headache chronicity pattern: acute headache Intractability: not intractable Qualified Code(s): R51.9 - Headache, unspe cified Is this a current diagnosis for this admission?: Yes - Plan Summary Summary: Patient will be admitted observation status on the medical floor where she will receive routine supportive and symptomatic cares. She will be treated with dexamethasone 4 mg IV every [address] Lai's directions. She will receive Keppra 500 mg IV every [address] Lai's directions. Her current fentanyl patch will be discontinued and she will receive morphine sulfate 2 to 4 mg IV every 2 hours as needed for pain. She will also receive Ativan 1 mg IV every 4 hours as needed for anxiety or restlessness. She will be treated with a regular diet as tolerated. Dr. Lai intends to talk to the family about palliative care/hospice in the morning. - Time Time Spent with patient: Less than 15 minutes Medications reviewed and adjusted accordingly: Yes Anticipated Discharge Disposition: Home with Hospice Anticipated Discharge Timeframe: within 24 hours - Inpatient Certification Based on my medical assessment, after consideration of the patient's comorbidities, presenting symptoms, or acuity I expect that the services needed warrant INPATIENT care.: No I certify that my determination is in accordance with my understanding of Medicare's requirements for reasonable and necessary INPATIENT services [42 CFR 412.3e].: No
--- NOTE | 2020-07-30 08:44 | PDOC CONSULTATION ---
Consultation Consult Date: 07/30/20 Attending physician:: JOSÉ MIGUEL LOTT Provider Consulted: MICHOACANO YORK Consult reason:: Patient with new left frontal brain metastasis in the setting of melanoma History of Present Illness Admission Date/PCP: 07/29/20 20:24 GEOVANI DAY MD Patient complains of: Confusion History of Present Illness: CRISTINA SANTAMARIA is a 80 year old female with known history of stage IV melanoma with widespread metastasis, started on Keytruda about 10 days ago, over the last 4 to 5 days noted with worsening confusion. She does have known history of dementia for about 1 to 2 years that has been worsening. Her daughter found her at home disheveled, and called us and we recommended her to be brought to the ER. 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 She was given 10 mg of IV dexamethasone. She was started on 4 mg IV every 6 hours of dex. This morning she actually looks much better, she is sitting up in bed, talkative, feeling better, and has eaten 1/2 her breakfast. I had a long discussion with her son who is her medical power of attorney lawyer, also is a nurse, and notes that they are unsure that she could be cared for at home alone. They thought about an assisted living situation. They understand a long term/rehab setting would not allow further therapy. I discussed with them that I believe her performance status would still allow further treatment. I also discussed her case with neurosurgery, Dr. Dontrell Bowman of [place], they will be reviewing her MRI which I pushed electronically to them, and she may be a candidate for gamma knife therapy. That would be done as an outpatient however. Past Medical History Cardiac Medical History: Reports: Atrial Fibrillation, Hypertension Denies: Coronary Artery Disease, Myocardial Infarction Pulmonary Medical History: Denies: Asthma, Bronchitis, Chronic Obstructive Pulmonary Disease (COPD), Pneumonia EENT Medical History: Denies: Cataracts, Ears - Hearing aids Neurological Medical History: Denies: Hemorrhagic CVA, Ischemic CVA, Seizures Endocrine Medical History: Denies: Diabetes Mellitus Type 1, Diabetes Mellitus Type 2, Hyperthyroidism, Hypothyroidism Renal/ Medical History: Denies: Chronic Kidney Disease, Nephrolithiasis Malignancy Medical History: Reports: Skin Cancer - Malignant melanoma primary site right lower extremity pretibial region GI Medical History: Denies: Cirrhosis, Hepatitis Musculoskeltal Medical History: Reports: Arthritis Denies: Gout Skin Medical History: Reports: Other - Multiple wound infections/poor postoperative healing right lower extremity Denies: Eczema, Psoriasis Psychiatric Medical History: Denies: Alcohol Dependency, Depression, Substance Abuse, Tobacco Dependency Traumatic Medical History: Reports: None Hematology: Reports: Anemia - Chronic Denies: Bleeding Tendencies Infectious Medical History: Reports: None Past Surgical History Past Surgical History: Reports: Other - Multiple surgeries of RLE, partial nephrectomy Social History Lives with: Family Smoking Status: Former Smoker Electronic Cigarette use?: No Frequency of Alcohol Use: None Hx Recreational Drug Use: No Drugs: None Hx Prescription Drug Abuse: No - Advance Directive Resuscitation Status: Full Code Family History Family History: Reviewed & Not Pertinent Parental Family History Reviewed: Yes Children Family History Reviewed: Yes Sibling(s) Family History Reviewed.: Yes Medication/Allergy Home Medications: Losartan Potassium 100 mg PO DAILY 06/26/20 Calcium Carb, Citrate/Vit D3 [Calcium + D3 ER Tablet] 1 each PO DAILY 07/28/20 Fentanyl 1 each TD 07/28/20 Vitamin B Complex 1 each PO DAILY 07/28/20 Allergies/Adverse Reactions: No Known Allergies Allergy (Verified 07/29/20 12:22) Review of Systems Constitutional: ABSENT: chills, fever(s), headache(s), weight gain, weight loss Eyes: ABSENT: visual disturbances Ears: ABSENT: hearing changes Cardiovascular: ABSENT: chest pain, dyspnea on exertion, edema, orthropnea, palpitations Respiratory: ABSENT: cough, hemoptysis Gastrointestinal: ABSENT: abdominal pain, constipation, diarrhea, hematemesis, hematochezia, nausea, vomiting Genitourinary: ABSENT: dysuria, hematuria Musculoskeletal: ABSENT: joint swelling Integumentary: ABSENT: rash, wounds Neurological: ABSENT: abnormal gait, abnormal speech, confusion, dizziness, focal weakness, syncope Psychiatric: ABSENT: anxiety, depression, homidical ideation, suicidal ideation Endocrine: ABSENT: cold intolerance, heat intolerance, polydipsia, polyuria Hematologic/Lymphatic: ABSENT: easy bleeding, easy bruising Physical Exam Vital Signs: Temp Pulse Resp BP Pulse Ox 97.9 F 81 18 144/70 H 99 07/29/20 23:41 07/29/20 23:41 07/29/20 23:41 07/29/20 23:41 07/29/20 23:41 Intake & Output 07/29/20 07/30/20 07/31/20 06:59 06:59 06:59 Intake Total 50 Balance 50 Weight 75.1 kg General appearance: PRESENT: no acute distress, well-developed, well-nourished Head exam: PRESENT: atraumatic, normocephalic Eye exam: PRESENT: conjunctiva pink, EOMI, PERRLA. ABSENT: scleral icterus Ear exam: PRESENT: normal external ear exam Mouth exam: PRESENT: moist, tongue midline Neck exam: ABSENT: carotid bruit, JVD, lymphadenopathy, thyromegaly Respiratory exam: PRESENT: clear to auscultation lyudmila. ABSENT: rales, rhonchi, wheezes Cardiovascular exam: PRESENT: RRR. ABSENT: diastolic murmur, rubs, systolic murmur Pulses: PRESENT: normal dorsalis pedis pul Vascular exam: PRESENT: normal capillary refill GI/Abdominal exam: PRESENT: normal bowel sounds, soft. ABSENT: distended, guar ding, mass, organolmegaly, rebound, tenderness Rectal exam: PRESENT: deferred Extremities exam: PRESENT: full ROM. ABSENT: calf tenderness, clubbing, pedal edema Neurological exam: PRESENT: alert, awake, oriented to person, oriented to place, oriented to time, oriented to situation, CN II-XII grossly intact. ABSENT: motor sensory deficit Psychiatric exam: PRESENT: appropriate affect, normal mood. ABSENT: homicidal ideation, suicidal ideation Skin exam: PRESENT: dry, intact, warm. ABSENT: cyanosis, rash Results Laboratory Results: 07/29/20 15:25 07/29/20 15:25 07/29/20 07/29/20 15:25 15:25 WBC 7.4 RBC 3.14 L Hgb 9.5 L Hct 28.1 L MCV 89 MCH 30.3 MCHC 33.9 RDW 16.6 H Plt Count 230 Seg Neutrophils % 63.5 Sodium 132.4 L Potassium 4.2 Chloride 97 L Carbon Dioxide 28 Anion Gap 7 BUN 19 Creatinine 0.62 Est GFR ( Amer) > 60 Glucose 99 Calcium 9.1 Total Bilirubin 0.5 AST 32 Alkaline Phosphatase 55 Total Protein 5.8 L Albumin 3.1 L 07/29/20 07/29/20 15:25 15:25 Creatine Kinase < 20 L Troponin I < 0.012 Impressions: Chest X-Ray 07/29/20 14:27 IMPRESSION: NO ACUTE RADIOGRAPHIC FINDING IN THE CHEST. Head MRI 07/29/20 16:11 IMPRESSION: 1. Left frontal lobe intracranial metastasis. Surrounding vasogenic edema and mild mass effect with mild left to right midline shift. No evidence of transtentorial herniation. 2. Soft tissue metastasis in the left posterior neck is again demonstrated. EVIDENCE OF ACUTE STROKE: NO. Status: Image reviewed by me Assessment & Plan - Diagnosis (1) Brain metastasis Is this a current diagnosis for this admission?: Yes Plan: Continue with IV steroids for 24 hours. I have gotten physical therapy to be involved today. We will have social work consult as well. Ultimately if she is able to get up and move around a little bit, and eat by herself, she could potentially discharge to something like an assisted care facility. And in that situation she could be potentially treated with gamma knife radiation in [place], as an outpatient. (2) Melanoma Qualifiers: Melanoma location: lower extremity including hip Laterality: right Qualified Code(s): C43.71 - Malignant melanoma of right lower limb, including hip Is this a current diagnosis for this admission?: Yes Plan: Original right lower extremity melanoma, now with recurrent disease, biopsy- proven, first dose of Keytruda given, feel that patient would be considered a candidate for further therapy. We will continue to follow closely. - Time Time Spent: Greater than 70 Minutes - Inpatient Certification Based on my medical assessment, after consideration of the patient's comorbidities, presenting symptoms, or acuity I expect that the services needed warrant INPATIENT care.: Yes I certify that my determination is in accordance with my understanding of Medicare's requirements for reasonable and necessary INPATIENT services [42 CFR 412.3e].: Yes Medical Necessity: Risk of Complication if Not Cared For in Hospital
[2020-07-30] MEDS: DOCUSATE SODIUM 100 MG CAPSULE PO SCH ×2 (10:04→18:04)
[2020-07-30] MEDS: FAMOTIDINE 20 MG TABLET PO SCH ×2 (10:04→22:20)
--- NOTE | 2020-07-30 14:12 | PDOC PROGRESS REPORT ---
Subjective Subjective:: Per Previous Physician: "CRISTINA SANTAMARIA is a 80 year old female who presented to the emergency room with a 3-day history of generalized weakness. Patient is unable to provide history due to her declining mental status and underlying chronic dementia. Information presented here is obtained from the best available reliable source. According to the patient's daughter/merchandise flow manager she has been increasingly fatigued and incr easingly weak over the last 3 days with associated anorexia and accompanying headache and increased flatulence. Her only change in medications has been the recent addition of a second fentanyl patch over the course of the last 6 days. The patient has a history of malignant melanoma with widespread metastases. The family was directed to bring the patient to the emergency room by Dr. Lai for admission to observation status and initiation of palliative cares. In the emergency room the patient was found to have an MRI demonstrating metastatic lesions in the left frontal lobe and a concomitant mild midline shift to the right. Dexamethasone treatment was initiated in the ER at Dr. Lai's direction with 10 mg IV x1 to be followed by 4 mg IV every 6 hours. Prophylactic anticonvulsant therapy was also initiated at Dr. Lai's direction with Keppra 500 mg IV every 12 hours. Patient was subsequently admitted observation status on the hospitalist service for further evaluation and treatment." Patient admitted overnight by Dr. Henry. Reportedly, Dr. Leo doll was discussing with the family in the ED that the patient may be appropriate for hospice. Per his note today, it seems that he is moving more in her direction of aggressive treatment by having the patient evaluated by neurosurgery in [place] for possible gamma knife therapy. He will likely need to have an in-depth discussion with the family regarding this treatment plan to determine if they feel this is appropriate. Blood pressure is a bit elevated and she is rather confused. Otherwise, she seems to be doing well. Reason For Visit: ALTERED MENTAL STATUS Physical Exam Vital Signs: Temp Pulse Resp BP Pulse Ox 97.4 F 76 16 140/74 H 97 07/30/20 10:00 07/30/20 07:18 07/30/20 07:18 07/30/20 07:18 07/30/20 07:18 Intake & Output 07/29/20 07/30/20 07/31/20 06:59 06:59 06:59 Intake Total 50 200 Balance 50 200 Weight 75.1 kg Exam: General appearance: PRESENT: no acute distress, obese, well-developed, well- nourished Head exam: PRESENT: atraumatic, normocephalic Eye exam: PRESENT: conjunctiva pink. ABSENT: scleral icterus Mouth exam: PRESENT: moist Respiratory exam: PRESENT: clear to auscultation lyudmila. ABSENT: rales, rhonchi, wheezes Cardiovascular exam: PRESENT: RRR. ABSENT: diastolic murmur, rubs, systolic murmur GI/Abdominal exam: PRESENT: normal bowel sounds, soft. ABSENT: distended, guarding, mass, organolmegaly, rebound, tenderness Neurological exam: PRESENT: alert, awake, oriented to person only Psychiatric exam: PRESENT: appropriate affect, normal mood Skin exam: PRESENT: dry, intact, warm Results Laboratory Results: 07/29/20 15:25 07/29/20 15:25 07/29/20 07/29/20 15:25 15:25 WBC 7.4 RBC 3.14 L Hgb 9.5 L Hct 28.1 L MCV 89 MCH 30.3 MCHC 33.9 RDW 16.6 H Plt Count 230 Seg Neutrophils % 63.5 Sodium 132.4 L Potassium 4.2 Chloride 97 L Carbon Dioxide 28 Anion Gap 7 BUN 19 Creatinine 0.62 Est GFR ( Amer) > 60 Glucose 99 Calcium 9.1 Total Bilirubin 0.5 AST 32 Alkaline Phosphatase 55 Total Protein 5.8 L Albumin 3.1 L 07/29/20 07/29/20 15:25 15:25 Creatine Kinase < 20 L Troponin I < 0.012 Impressions: Chest X-Ray 07/29/20 14:27 IMPRESSION: NO ACUTE RADIOGRAPHIC FINDING IN THE CHEST. Head MRI 07/29/20 16:11 IMPRESSION: 1. Left frontal lobe intracranial metastasis. Surrounding vasogenic edema and mild mass effect with mild left to right midline shift. No evidence of transtentorial herniation. 2. Soft tissue metastasis in the left posterior neck is again demonstrated. EVIDENCE OF ACUTE STROKE: NO. 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 Lai (4) Weakness Is this a current diagnosis for this admission?: Yes (5) Fatigue Qualifiers: Fatigue type: unspecified Qualified Code(s): R53.83 - Other fatigue Is this a current diagnosis for this admission?: Yes Plan: Physical therapy consult (6) Headache Qualifiers: Headache type: unspecified Headache chronicity pattern: acute headache Intractability: not intractable Qualified Code(s): R51.9 - Headache, u nspecified Is this a current diagnosis for this admission?: Yes - Plan Summary Summary: Patient will be admitted observation status on the medical floor where she will receive routine supportive and symptomatic cares. She will be treated with dexamethasone 4 mg IV every [address] Lai's directions. She will receive Keppra 500 mg IV every [address] Lai's directions. Her current fentanyl patch will be discontinued and she will receive morphine sulfate 2 to 4 mg IV every 2 hours as needed for pain. She will also receive Ativan 1 mg IV every 4 hours as needed for anxiety or restlessness. She will be treated with a regular diet as tolerated. Dr. Lai intends to talk to the family about palliative care/hospice in the morning. - Time Time Spent with patient: 35 or more minutes Medications reviewed and adjusted accordingly: Yes Anticipated Discharge Disposition: Assisted Living with Home Health Services Anticipated Discharge Timeframe: within 48 hours - Inpatient Certification Based on my medical assessment, after consideration of the patient's co morbidities, presenting symptoms, or acuity I expect that the services needed warrant INPATIENT care.: Yes I certify that my determination is in accordance with my understanding of Medicare's requirements for reasonable and necessary INPATIENT services [42 CFR 412.3e].: Yes Medical Necessity: Significant Comorbidiites Make Outpatient Treatment Too Risky, Need Close Monitoring Due to Risk of Patient Decompensation, Need for Neurological Checks, Risk of Complication if Not Cared For in Hospital, Risk of Diagnosis Which Will Require Inpatient Eval/Care/Monitoring
[2020-07-31] MEDS: DEXAMETHASONE SOD PHOSPHATE INJ 4 MG/1 ML VIAL IV SCH ×4 (00:29→18:49)
[2020-07-31] MEDS: HEPARIN SOD (PORCINE) 5,000 UNIT/ML 1 ML VIAL SUBCUT SCH ×3 (06:30→21:23)
[2020-07-31] MEDS ORDERED: INFLUENZA QUAD (6MOS+) 2020-21 VAC 0.5 ML SYR IM ONE (08:00)
--- NOTE | 2020-07-31 08:04 | PDOC PROGRESS REPORT ---
Subjective Progress Note for:: 07/31/20 Subjective:: Today patient continues to have same level of dementia and alertness. Yesterday had a long conversation with the son. He did not feel like her dementia and mental status was much better on steroids. She has now had 48 hours of steroids and this morning and what nursing was describing her mental status is stable. She is able to get up and move around a little bit with prompting and help. She is able to eat some of her breakfast and other meals with prompting. In discussion with family, they are strongly considering a comfort care approach because they feel like the dementia is worsening and that it probably will not improve, which we agreed with, and if that is the case they do not know what the utility of continued treatment would be, as that does not seem that it would improve her quality of life. We agreed with this approach, I have discussed her case with discharge planning, and I believe she may be a candidate for an assisted living situation with hospice. [facility]. I discussed this with the son who will be getting with discharge planning and discuss this further. Reason For Visit: ALTERED MENTAL STATUS Physical Exam Vital Signs: Temp Pulse Resp BP Pulse Ox 98.6 F 78 17 112/60 98 07/31/20 04:00 07/31/20 04:00 07/31/20 04:00 07/31/20 04:00 07/31/20 04:00 Intake & Output 07/30/20 07/31/20 08/01/20 06:59 06:59 06:59 Intake Total 50 862 Balance 50 862 Weight 75.1 kg 75.1 kg General appearance: PRESENT: no acute distress, well-developed, well-nourished Head exam: PRESENT: atraumatic, normocephalic Eye exam: PRESENT: conjunctiva pink, EOMI, PERRLA. ABSENT: scleral icterus Ear exam: PRESENT: normal external ear exam Mouth exam: PRESENT: moist, tongue midline Neck exam: ABSENT: carotid bruit, JVD, lymphadenopathy, thyromegaly Respiratory exam: PRESENT: clear to auscultation lyudmila. ABSENT: rales, rhonchi, wheezes Cardiovascular exam: PRESENT: RRR. ABSENT: diastolic murmur, rubs, systolic murmur Pulses: PRESENT: normal dorsalis pedis pul Vascular exam: PRESENT: normal capillary refill GI/Abdominal exam: PRESENT: normal bowel sounds, soft. ABSENT: distended, guarding, mass, organolmegaly, rebound, tenderness Rectal exam: PRESENT: deferred Extremities exam: PRESENT: full ROM. ABSENT: calf tenderness, clubbing, pedal edema Neurological exam: PRESENT: alert, awake, oriented to person, oriented to place, oriented to time, oriented to situation, CN II-XII grossly intact. ABSENT: motor sensory deficit Psychiatric exam: PRESENT: appropriate affect, normal mood. ABSENT: homicidal ideation, suicidal ideation Skin exam: PRESENT: dry, intact, warm. ABSENT: cyanosis, rash Results Laboratory Results: 07/29/20 15:25 07/29/20 15:25 07/29/20 07/29/20 15:25 15:25 Creatine Kinase < 20 L Troponin I < 0.012 Impressions: Chest X-Ray 07/29/20 14:27 IMPRESSION: NO ACUTE RADIOGRAPHIC FINDING IN THE CHEST. Head MRI 07/29/20 16:11 IMPRESSION: 1. Left frontal lobe intracranial metastasis. Surrounding vasogenic edema and mild mass effect with mild left to right midline shift. No evidence of transtentorial herniation. 2. Soft tissue metastasis in the left posterior neck is again demonstrated. EVIDENCE OF ACUTE STROKE: NO. Assessment & Plan - Diagnosis (1) Brain metastasis Is this a current diagnosis for this admission?: Yes Plan: Continue with steroids for today. (2) Melanoma Qualifiers: Melanoma location: lower extremity including hip Laterality: right Travis lified Code(s): C43.71 - Malignant melanoma of right lower limb, including hip Is this a current diagnosis for this admission?: Yes Plan: Probably will not get to further therapy. - Time Time Spent with patient: 35 or more minutes - Inpatient Certification Based on my medical assessment, after consideration of the patient's comorbidities, presenting symptoms, or acuity I expect that the services needed warrant INPATIENT care.: Yes I certify that my determination is in accordance with my understanding of Medicare's requirements for reasonable and necessary INPATIENT services [42 CFR 412.3e].: Yes Medical Necessity: Risk of Complication if Not Cared For in Hospital
[2020-07-31] MEDS: LEVETIRACETAM 500 MG/NACL-ISO 500 MG/100 ML RTUPB IV SCH ×2 (09:17→21:22)
[2020-07-31] MEDS: DOCUSATE SODIUM 100 MG CAPSULE PO SCH ×2 (09:17→18:49)
[2020-07-31] MEDS: FAMOTIDINE 20 MG TABLET PO SCH ×2 (09:17→21:23)
[2020-07-31] MEDS: SILVER SULFADIAZINE 1% CREAM 400 GM TP SCH (18:50)
--- NOTE | 2020-07-31 19:00 | PDOC PROGRESS REPORT ---
Subjective Subjective:: Per Previous Physician: "CRISTINA SANTAMARIA is a 80 year old female who presented to the emergency room with a 3-day history of generalized weakness. Patient is unable to provide history due to her declining mental status and underlying chronic dementia. Information presented here is obtained from the best available reliable source. According to the patient's daughter/boring and filling machine operator she has been increasingly fatigued and incr easingly weak over the last 3 days with associated anorexia and accompanying headache and increased flatulence. Her only change in medications has been the recent addition of a second fentanyl patch over the course of the last 6 days. The patient has a history of malignant melanoma with widespread metastases. The family was directed to bring the patient to the emergency room by Dr. Lai for admission to observation status and initiation of palliative cares. In the emergency room the patient was found to have an MRI demonstrating metastatic lesions in the left frontal lobe and a concomitant mild midline shift to the right. Dexamethasone treatment was initiated in the ER at Dr. Lai's direction with 10 mg IV x1 to be followed by 4 mg IV every 6 hours. Prophylactic anticonvulsant therapy was also initiated at Dr. Lai's direction with Keppra 500 mg IV every 12 hours. Patient was subsequently admitted observation status on the hospitalist service for further evaluation and treatment." Patient admitted overnight by Dr. Henry. Reportedly, Dr. Leo doll was discussing with the family in the ED that the patient may be appropriate for hospice. Per his note today, it seems that he is moving more in her direction of aggressive treatment by having the patient evaluated by neurosurgery in [place] for possible gamma knife therapy. He will likely need to have an in-depth discussion with the family regarding this treatment plan to determine if they feel this is appropriate. Blood pressure is a bit elevated and she is rather confused. Otherwise, she seems to be doing well. 07/31/2020 Oncology and the patient's family been discussing pros and cons of hospice ve rsus aggressive care. Reportedly, family is quite clear that they would like the patient to go home on hospice rather than pursuing aggressive care. Patient actually has visible melanoma lesions that have attached to her manubrium and clavicles that are quite impressive. She clearly has widespread metastatic disease and I do not believe CyberKnife on her brain will have a substantial impact on her length or quality of life. I agree with home with hospice tomorrow if all are in agreement. Patient has no new complaints today. She is pleasantly confused. Reason For Visit: ALTERED MENTAL STATUS Physical Exam Vital Signs: Temp Pulse Resp BP Pulse Ox 98.1 F 68 16 120/62 100 07/31/20 15:53 07/31/20 15:53 07/31/20 15:53 07/31/20 15:53 07/31/20 15:53 Intake & Output 07/30/20 07/31/20 08/01/20 06:59 06:59 06:59 Intake Total 50 862 461 Output Total 200 Balance 50 862 261 Weight 75.1 kg 75.1 kg Exam: General appearance: PRESENT: no acute distress, well-developed, well-nourished, pleasantly confused Head exam: PRESENT: atraumatic, normocephalic Eye exam: PRESENT: conjunctiva pink. ABSENT: scleral icterus Mouth exam: PRESENT: moist Respiratory exam: PRESENT: clear to auscultation lyudmila. ABSENT: rales, rhonchi, wheezes Cardiovascular exam: PRESENT: RRR. ABSENT: diastolic murmur, rubs, systolic murmur GI/Abdominal exam: PRESENT: normal bowel sounds, soft. ABSENT: distended, guarding, mass, organolmegaly, rebound, tenderness Neurological exam: PRESENT: alert, awake, oriented to person Psychiatric exam: PRESENT: appropriate affect, normal mood Skin exam: PRESENT: dry, intact, warm; multiple bony prominent lesions co nsistent with metastatic disease on sternum and clavicle Results Laboratory Results: 07/29/20 15:25 07/29/20 15:25 07/29/20 07/29/20 15:25 15:25 Creatine Kinase < 20 L Troponin I < 0.012 Impressions: Chest X-Ray 07/29/20 14:27 IMPRESSION: NO ACUTE RADIOGRAPHIC FINDING IN THE CHEST. Head MRI 07/29/20 16:11 IMPRESSION: 1. Left frontal lobe intracranial metastasis. Surrounding vasogenic edema and mild mass effect with mild left to right midline shift. No evidence of transtentorial herniation. 2. Soft tissue metastasis in the left posterior neck is again demonstrated. EVIDENCE OF ACUTE STROKE: NO. Assessment and Plan - Diagnosis (1) Acute metabolic encephalopathy Is this a current diagnosis for this admission?: Yes Plan: Due to brain metastases of malignant melanoma Given IV steroids per oncology Family has elected not to pursue evaluation for gamma knife Plan is home with hospice on 08/01 Hopefully home tomorrow if hospice has been arranged. 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 Is this a current diagnosis for this admission?: Yes Plan: Seen on MRI brain on admission Oncology consulted: In agreement with family home with hospice IV steroids per oncology (3) Melanoma Qualifiers: Melanoma location: lower extremity including hip Laterality: right Qualified Code(s): C43.71 - Malignant melanoma of right lower limb, including hip Is this a current diagnosis for this admission?: Yes (4) Weakness Is this a current diagnosis for this admission?: Yes (5) Fatigue Qualifiers: Fatigue type: unspecified Qualified Code(s): R53.83 - Other fatigue Is this a current diagnosis for this admission?: Yes (6) Headache Qualifiers: Headache type: unspecified Headache chronicity pattern: acute headache In tractability: not intractable Qualified Code(s): R51.9 - Headache, unspecified Is this a current diagnosis for this admission?: Yes - Plan Summary Summary: Patient will be admitted observation status on the medical floor where she will receive routine supportive and symptomatic cares. She will be treated with dexamethasone 4 mg IV every [address] Lai's directions. She will re ceive Keppra 500 mg IV every [address] Lai's directions. Her current fentanyl patch will be discontinued and she will receive morphine sulfate 2 to 4 mg IV every 2 hours as needed for pain. She will also receive Ativan 1 mg IV every 4 hours as needed for anxiety or restlessness. She will be treated with a regular diet as tolerated. Dr. Lai intends to talk to the family about palliative care/hospice in the morning. - Time Time Spent with patient: 15-24 minutes Medications reviewed and adjusted accordingly: Yes Anticipated Discharge Disposition: Home with Hospice Anticipated Discharge Timeframe: within 24 hours - Inpatient Certification Based on my medical assessment, after consideration of the patient's comorbidities, presenting symptoms, or acuity I expect that the services needed warrant INPATIENT care.: Yes I certify that my determination is in accordance with my understanding of Medicare's requirements for reasonable and necessary INPATIENT services [42 CFR 412.3e].: Yes Medical Necessity: Significant Comorbidiites Make Outpatient Treatment Too Risky, Need Close Monitoring Due to Risk of Patient Decompensation, Risk of Complication if Not Cared For in Hospital, Risk of Diagnosis Which Will Require Inpatient Eval/Care/Monitoring
[2020-08-01] MEDS: DEXAMETHASONE SOD PHOSPHATE INJ 4 MG/1 ML VIAL IV SCH ×3 (01:08→11:34)
[2020-08-01] MEDS: HEPARIN SOD (PORCINE) 5,000 UNIT/ML 1 ML VIAL SUBCUT SCH (06:08)
--- NOTE | 2020-08-01 08:04 | PDOC PROGRESS REPORT ---
Subjective Progress Note for:: 08/01/20 Subjective:: Patient is doing okay, long discussion with family and ultimately decision made to pursue hospice at home. Things are getting ready for that at home. Hopeful DC today. Reason For Visit: ALTERED MENTAL STATUS Physical Exam Vital Signs: Temp Pulse Resp BP Pulse Ox 97.7 F 56 L 18 122/64 99 07/31/20 23:35 07/31/20 23:35 07/31/20 23:35 07/31/20 23:35 07/31/20 23:35 Intake & Output 07/31/20 08/01/20 08/02/20 06:59 06:59 06:59 Intake Total 862 661 Output Total 200 Balance 862 461 Weight 75.1 kg 76.5 kg General appearance: PRESENT: no acute distress, well-developed, well-nourished Head exam: PRESENT: atraumatic, normocephalic Eye exam: PRESENT: conjunctiva pink, EOMI, PERRLA. ABSENT: scleral icterus Ear exam: PRESENT: normal external ear exam Mouth exam: PRESENT: moist, tongue midline Neck exam: ABSENT: carotid bruit, JVD, lymphadenopathy, thyromegaly Respiratory exam: PRESENT: clear to auscultation lyudmila. ABSENT: rales, rhonchi, wheezes Cardiovascular exam: PRESENT: RRR. ABSENT: diastolic murmur, rubs, systolic mur mur Pulses: PRESENT: normal dorsalis pedis pul Vascular exam: PRESENT: normal capillary refill GI/Abdominal exam: PRESENT: normal bowel sounds, soft. ABSENT: distended, guarding, mass, organolmegaly, rebound, tenderness Rectal exam: PRESENT: deferred Extremities exam: PRESENT: full ROM. ABSENT: calf tenderness, clubbing, pedal edema Neurological exam: PRESENT: alert, awake, oriented to person, oriented to place, oriented to time, oriented to situation, CN II-XII grossly intact. ABSENT: motor sensory deficit Psychiatric exam: PRESENT: appropriate affect, normal mood. ABSENT: homicidal ideation, suicidal ideation Skin exam: PRESENT: dry, intact, warm. ABSENT: cyanosis, rash Results Laboratory Results: 07/29/20 15:25 07/29/20 15:25 07/29/20 07/29/20 15:25 15:25 Creatine Kinase < 20 L Troponin I < 0.012 Impressions: Chest X-Ray 07/29/20 14:27 IMPRESSION: NO ACUTE RADIOGRAPHIC FINDING IN THE CHEST. Head MRI 07/29/20 16:11 IMPRESSION: 1. Left frontal lobe intracranial metastasis. Surrounding vasogenic edema and mild mass effect with mild left to right midline shift. No evidence of transtentorial herniation. 2. Soft tissue metastasis in the left posterior neck is again demonstrated. EVIDENCE OF ACUTE STROKE: NO. Assessment & Plan - Diagnosis (1) Brain metastasis Is this a current diagnosis for this admission?: Yes Plan: She will need to continue on dexamethasone 4 mg every 6 hours on discharge, no further work-up or treatment (2) Melanoma Qualifiers: Melanoma location: lower extremity including hip Laterality: right Qualified Code(s): C43.71 - Malignant melanoma of right lower limb, including hip Is this a current diagnosis for this admission?: Yes Plan: We will be discontinuing treatment, initiating hospice - Time Time Spent with patient: 35 or more minutes
[2020-08-01] MEDS: LEVETIRACETAM 500 MG/NACL-ISO 500 MG/100 ML RTUPB IV SCH (10:17)
[2020-08-01] MEDS: FAMOTIDINE 20 MG TABLET PO SCH (10:17)
[2020-08-01] MEDS: DOCUSATE SODIUM 100 MG CAPSULE PO SCH (10:17)
[2020-08-01] MEDS: SILVER SULFADIAZINE 1% CREAM 400 GM TP SCH (10:17)
[2020-08-01 11:45] VITALS: BP 112/60
--- NOTE | 2020-08-01 15:14 | PDOC DISCHARGE SUMMARY ---
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 She will be treated with dexamethasone 4 mg IV every [address] Lai's directions. She will receive Keppra 500 mg IV every [address] Lai's directions. Her current fentanyl patch will be discontinued and she will receive morphine sulfate 2 to 4 mg IV every 2 hours as needed for pain. She will also receive Ativan 1 mg IV every 4 hours as needed for anxiety or restlessness. She will be treated with a regular diet as tolerated. Dr. Lai intends to talk to the family about palliative care/hospice in the morning. - Additional Information Resuscitation Status: Do Not Resuscitate Discharge Diet: As Tolerated Discharge Activity: Bedrest Referrals: [facility] [Outside] GEOVANI DAY MD [Primary Care Provider] - Follow up as needed Prescriptions: Dexamethasone [Decadron 4 mg Tablet] 4 mg PO Q6 #120 tablet Morphine Sulfate 10 mg PO Q4HP PRN #30 ml PRN Reason: Home Medications: Dexamethasone [Decadron 4 mg Tablet] 4 mg PO Q6 #120 tablet 08/01/20 Morphine Sulfate 10 mg PO Q4HP PRN #30 ml 08/01/20 History of Present Illiness History of Present Illness: CRISTINA SANTAMARIA is a 80 year old female who presented to the emergency room with a 3-day history of generalized weakness. Patient is unable to provide history due to her declining mental status and underlying chronic dementia. Information presented here is obtained from the best available reliable source. According to the patient's daughter/medical center representative she has been increasingly fatigued and increasingly weak over the last 3 days with associated anorexia and accompanying headache and increased flatulence. Her only change in medications has been the recent addition of a second fentanyl patch over the course of the last 6 days. The patient has a history of malignant melanoma with widespread metastases. The family was directed to bring the patient to the emergency room by Dr. Lai for admission to observation status and initiation of palliative cares. In the emergency room the patient was found to have an MRI demonstrating metastatic lesions in the left frontal lobe and a concomitant mild midline shift to the right. Dexamethasone treatment was initiated in the ER at Dr. Lai's direction with 10 mg IV x1 to be followed by 4 mg IV every 6 hours. Prophylactic anticonvulsant therapy was also initiated at Dr. Lai's direction with Keppra 500 mg IV every 12 hours. Patient was subsequently admitted observation status on the hospitalist service for further evaluation and treatment. Hospital Course Hospital Course: Patient was started on Decadron and Keppra. She did have some improvement, but she remained pleasantly confused. After some discussion, her family decided to take her home on hospice. She will go home continuing Decadron and I gave her a prescription for some oral morphine solution. All of the appropriate arran gements were made she was discharged home to hospice this morning. Physical Exam Vital Signs: Temp Pulse Resp BP Pulse Ox 97.7 F 65 16 112/60 96 08/01/20 11:42 08/01/20 11:42 08/01/20 11:42 08/01/20 11:42 08/01/20 11:42 Intake & Output 07/31/20 08/01/20 08/02/20 06:59 06:59 06:59 Intake Total 862 661 Output Total 200 Balance 862 461 Weight 75.1 kg 76.5 kg General appearance: PRESENT: no acute distress, well-developed, well-nourished, pleasantly confused Head exam: PRESENT: atraumatic, normocephalic Eye exam: PRESENT: conjunctiva pink. ABSENT: scleral icterus Mouth exam: PRESENT: moist Respiratory exam: PRESENT: clear to auscultation lyudmila. ABSENT: rales, rhonchi, wheezes Cardiovascular exam: PRESENT: RRR. ABSENT: diastolic murmur, rubs, systolic murmur GI/Abdominal exam: PRESENT: normal bowel sounds, soft. ABSENT: distended, guarding, mass, organolmegaly, rebound, tenderness Neurological exam: PRESENT: alert, awake, oriented to person Psychiatric exam: PRESENT: appropriate affect, normal mood Skin exam: PRESENT: dry, intact, warm; multiple bony prominent lesions consi stent with metastatic disease on sternum and clavicle Results Laboratory Results: WBC 7.4 10^3/uL (4.0-10.5) 07/29/20 15:25 RBC 3.14 10^6/uL (3.72-5.28) L 07/29/20 15:25 Hgb 9.5 g/dL (12.0-15.5) L 07/29/20 15:25 Hct 28.1 % (36.0-47.0) L 07/29/20 15:25 MCV 89 fl (80-97) 07/29/20 15:25 MCH 30.3 pg (27.0-33.4) 07/29/20 15:25 MCHC 33.9 g/dL (32.0-36.0) 07/29/20 15:25 RDW 16.6 % (11.5-14.0) H 07/29/20 15:25 Plt Count 230 10^3/uL (150-450) 07/29/20 15:25 Lymph % (Auto) 21.8 % (13-45) 07/29/20 15:25 [place] % (Auto) 12.2 % (3-13) 07/29/20 15:25 Eos % (Auto) 1.5 % (0-6) 07/29/20 15:25 Baso % (Auto) 1.0 % (0-2) 07/29/20 15:25 Absolute Neuts (auto) 4.7 10^3/uL (1.7-8.2) 07/29/20 15:25 Absolute Lymphs (auto) 1.6 10^3/uL (0.5-4.7) 07/29/20 15:25 Absolute Monos (auto) 0.9 10^3/uL (0.1-1.4) 07/29/20 15:25 Absolute Eos (auto) 0.1 10^3/uL (0.0-0.6) 07/29/20 15:25 Absolute Basos (auto) 0.1 10^3/uL (0.0-0.2) 07/29/20 15:25 Seg Neutrophils % 63.5 % (42-78) 07/29/20 15:25 PT 14.7 SEC (11.4-15.4) 07/29/20 15:25 INR 1.13 07/29/20 15:25 APTT 30.6 SEC (23.5-35.8) 07/29/20 15:25 Sodium 132.4 mmol/L (137-145) L 07/29/20 15:25 Potassium 4.2 mmol/L (3.6-5.0) 07/29/20 15:25 Chloride 97 mmol/L (98-107) L 07/29/20 15:25 Carbon Dioxide 28 mmol/L (22-30) 07/29/20 15:25 Anion Gap 7 (5-19) 07/29/20 15:25 BUN 19 mg/dL (7-20) 07/29/20 15:25 Creatinine 0.62 mg/dL (0.52-1.25) 07/29/20 15:25 Est GFR ( Amer) > 60 (>60) 07/29/20 15:25 Est GFR (MDRD) Non-Af > 60 (>60) 07/29/20 15:25 Glucose 99 mg/dL (75-110) 07/29/20 15:25 Calcium 9.1 mg/dL (8.4-10.2) 07/29/20 15:25 Total Bilirubin 0.5 mg/dL (0.2-1.3) 07/29/20 15:25 Direct Bilirubin 0.2 mg/dL (0.0-0.4) 07/29/20 15:25 Neonat Total Bilirubin Not Reportable 07/29/20 15:25 Neonat Direct Bilirubin Not Reportable 07/29/20 15:25 Neonat Indirect Bili Not Reportable 07/29/20 15:25 AST 32 U/L (14-36) 07/29/20 15:25 ALT 10 U/L (<35) 07/29/20 15:25 Alkaline Phosphatase 55 U/L (38-126) 07/29/20 15:25 Creatine Kinase < 20 U/L (30-135) L 07/29/20 15:25 Troponin I < 0.012 ng/mL 07/29/20 15:25 Total Protein 5.8 g/dL (6.3-8.2) L 07/29/20 15:25 Albumin 3.1 g/dL (3.5-5.0) L 07/29/20 15:25 07/29/20 15:25 Troponin I < 0.012 Impressions: Chest X-Ray 07/29/20 14:27 IMPRESSION: NO ACUTE RADIOGRAPHIC FINDING IN THE CHEST. Head MRI 07/29/20 16:11 IMPRESSION: 1. Left frontal lobe intracranial metastasis. Surrounding vasogenic edema and mild mass effect with mild left to right midline shift. No evidence of transtentorial herniation. 2. Soft tissue metastasis in the left posterior neck is again demonstrated. EVIDENCE OF ACUTE STROKE: NO. Plan Time Spent: Greater than 30 Minutes Stroke Is this a Stroke Patient?: No Acute Heart Failure Is this a Heart Failure Patient?: No
== END 2020-08-01 12:12 | disposition hospice, home (50) ==
LOC: ER 11:31 → EH 20:24 → 4N 21:56
PROVIDERS: ADMIT Emergency Medicine; ATTEND Family Medicine
DX: C43.71 Malignant melanoma of right lower limb, including hip (principal); C79.31 Secondary malignant neoplasm of brain; G93.40 Encephalopathy, unspecified; R53.83 Other fatigue; R51.9 Headache, unspecified; R53.1 Weakness; F03.90 Unspecified dementia, unspecified severity, without behavioral disturbance, psychotic disturbance, mood disturbance, and anxiety; L59.9 Disorder of the skin and subcutaneous tissue related to radiation, unspecified; Z79.899 Other long term (current) drug therapy; I10 Essential (primary) hypertension; I48.91 Unspecified atrial fibrillation; Z87.891 Personal history of nicotine dependence; Z79.01 Long term (current) use of anticoagulants
CPT/HCPCS: 93005; 99285; 36415; 82550; 85025; 85610; 85730; 80053; 84484; 70553; 71045; 93010; 97530; 97162; G0378 ×4; A9576; J1644 ×4; A9270 ×8; J1100 ×4; J3490 ×4; J1953 ×3